=== PATIENT | male | born 2000 | race Two or more races ===

== ENCOUNTER 2021-01-24 00:14 | Emergency (ER) | payer OTHER, MEDICAID ==
[~2021-01-24] VITALS: Ht 180.3 cm; Wt 62.0 kg
[2021-01-24] MEDS ORDERED: FLUORESCEIN SODIUM 1MG/STRIP RIGHTEYE ONE (00:45)
[2021-01-24] MEDS ORDERED: BACITRACIN ZINC OINT UDPKT TOP ONE (00:45)
[2021-01-24] MEDS ORDERED: ACETAMINOPHEN 325MG TABLET PO ONE (00:45)
[2021-01-24] MEDS ORDERED: LIDOCAINE HCL/PF 1% 10 MG/ML 5ML VIAL INFIL ONE (00:45)
[2021-01-24] MEDS ORDERED: BO1 TP (01:59)
[2021-01-24] MEDS ORDERED: ACET-2708 MT (01:59)
[2021-01-24 02:20] VITALS: BP 124/77
== END 2021-01-24 02:20 | disposition home or self-care (01) ==
LOC: ER 00:14
DX: S01.111A Laceration without foreign body of right eyelid and periocular area, initial encounter (principal); K58.9 Irritable bowel syndrome, unspecified; Y04.2XXA Assault by strike against or bumped into by another person, initial encounter; Y93.89 Activity, other specified; Y92.89 Other specified places as the place of occurrence of the external cause
CPT/HCPCS: 12013; 99284; J3490; Z7610